=== PATIENT | female | born 1960 | race Caucasian/White ===

== ENCOUNTER → 2016-09-08 | Outpatient (CLI) | payer BC ==
[~2016-09-08] MED LIST: VESICARE PO; WALGREENS PHARMACY; WELLBUTRIN PO
--- NOTE | ~2016-09-08 | CR142 ---
[facility] A Service of [facility] & [facility] / [facility] RADIOLOGY TEXT RESULTS PATIENT: GRIFFIN POND LOCATION: [facility] : 60 UNIT #: [id number] AGE: [address]: Aidee Bansal MD SEX: F ORDER DR: [id number] [facility] [address] [place], [place] [address] [id number] O MR#: [id number] Acc #: [id number] NAME: GRIFFIN POND : 1960 SEX: F STUDY DATE/TIME: 09/08/2016 16:13 UNIT: [facility] ROOM: STUDY DESCRIPTION: CR Hand Min 3 Views Rt Attending Physician: Aidee Bansal M.D. Referring Physician: Aidee Bansal M.D. Ordering Physician: Aidee Bansal M.D. Primary Care Physician: Aidee Bansal M.D. MEDICAL IMAGING REPORT This report is preliminary unless electronic signature is present EXAM 3 views of the hand 09/08/2016 HISTORY 56-year-old female with right hand pain and swelling, greatest in the third finger. Symptoms present for a month. 7 years ago, right third finger got twisted on a dog leash. COMPARISON None. FINDINGS No acute fracture or joint dislocation is seen. There is mild degenerative change of the right hand manifests as joint space narrowing, predominately in the third and fourth interphalangeal joints, and there is cystic change of the proximal and ulnar margin of the middle phalanx of the third finger, as well. No significant osteophytosis is identified. No joint dislocation. No retained radiopaque foreign body. 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 No acute findings. Dictated by... Nancy Johns M.D. THIS IS AN ELECTRONICALLY VERIFIED REPORT Nancy Johns M.D. at 09/11/2016 8:33 AM LLJose/[place] TD: 09/08/2016 20:58 [facility] A Service of [facility] & [facility] / [facility] RADIOLOGY TEXT RESULTS PATIENT: GRIFFIN POND LOCATION: [facility] : 60 UNIT #: [id number] AGE: [address]: Aidee Bansal MD SEX: F ORDER DR: JOB #: [id number] MEDICAL IMAGING REPORT Page 1 of 1 COPY
== END | disposition home or self-care (01) ==
LOC: CRAD 15:52
DX: M79.641 Pain in right hand (principal)
CPT/HCPCS: 73130